=== PATIENT | female | born 1950 | race Two or more races ===

== ENCOUNTER 2019-01-27 22:00 | Emergency (ER) | payer OTHER ==
[~2019-01-27] VITALS: Ht 165.1 cm; Wt 59.0 kg
[2019-01-27 22:45] LABS: BASOPHILS % (AUTO) 0.2 % (0.0-2.0); EOSINOPHILS % (AUTO) 0.2 % (0.0-7.0); HEMATOCRIT 33.6 % (31.2-41.9); LYMPHOCYTES # (AUTO) 0.5 K/uL (20.0-40.0); LYMPHOCYTES % (AUTO) 3.3 % (20.5-51.5); MEAN CORPUSCULAR HGB CONC 33 g/dL (32.3-35.6); MEAN CORPUSCULAR VOLUME 91.9 fL (75.5-95.3); MONOCYTES # (AUTO) 1.1 K/uL (2.0-10.0); MONOCYTES % (AUTO) 7.1 % (0.0-11.0); NEUTROPHILS # (AUTO) 13.6 K/uL (1.8-8.9); NEUTROPHILS % (AUTO) 89.2 % (38.5-71.5); PLATELET COUNT (AUTO) 459 K/uL (179-408); RED BLOOD CELL COUNT(AUTO) 3.66 MIL/uL (3.63-4.92); WHITE BLOOD COUNT (AUTO) 15.2 K/uL (3.8-11.8)
[2019-01-27 22:56] LABS: BILIRUBIN,DIRECT 0.4 mg/dL (0.0-0.2); BILIRUBIN,TOTAL 0.9 mg/dL (0.2-1.0); CREATININE 0.7 mg/dL (0.6-1.3); POTASSIUM 4.5 mmol/L (3.5-5.1); TOTAL PROTEIN, SERUM 6.7 g/dL (6.4-8.2)
[2019-01-27] MEDS ORDERED: MORPHINE SULFATE 2 MG/1 ML DISP.SYRIN IV ONE (23:00)
--- NOTE | 2019-01-27 23:00 | NUR ---
CRITICAL VALUE 2.5 LACTIC ACID READ BY BREANNE (LAB) ERMD AWARE
--- NOTE | 2019-01-27 23:21 | NUR ---
PT RECEIVED NORCO TERRAZZO FINISHER AND DENIES PAIN AT THIS TIME FROM R HIP SWELLING PT WOULD LIKE TO WAIT UNTIL PAIN COMES BACK AGAIN FOR MORPHINE PT REQUESTING IV HYDRATION, STATES SHE FEELS DRY AND WAS NOT ABLE TO DRINK MUCH SHE USED TO ERMD AWARE
[2019-01-27] MEDS ORDERED: IV NS 1000 ML 1,000 ML IV ONE (23:30)
--- NOTE | 2019-01-27 23:54 | NUR ---
CHUCK ([facility] ATTENDANT) ON THE PHONE FOR CLINICALS STATES ASSIGNED WILL CALL US BACK TO TALK WITH DR ALVAREZ
[2019-01-28] MEDS ORDERED: MORPHINE SULFATE 2 MG/1 ML DISP.SYRIN ONE (01:21)
--- NOTE | 2019-01-28 01:40 | NUR ---
HAND OFF AND SBAR GIVEN TO WOLFGANG GILBERT ([phone]) PT WILL BE TRANSFERED TO [facility] RECEIVING MD: Katie TERRY DX: ACUTE R HIP FRACTURE RM [id number] TRANSFER FORM SIGNED
--- NOTE | 2019-01-28 01:45 | NUR ---
monitored accordingly bp 154/89 hr 90 spo2 99 rr 18 pain tolerable afte iv pain meds
--- NOTE | 2019-01-28 01:48 | NUR ---
able to tolerate ivf insertion by burn nurse to r dorsal hand g22
--- NOTE | 2019-01-28 02:28 | NUR ---
HAND OFF AND SBAR GIVEN TO EMS PT PICKED UP AND TRANSFERRED TO [facility] Patient Tranfers to outside Facility Physician: Katie TERRY Location:[address]
== END 2019-01-28 02:30 | disposition short-term general hospital (02) ==
LOC: ER 22:03
DX: S72.001A Fracture of unspecified part of neck of right femur, initial encounter for closed fracture (principal); E87.1 Hypo-osmolality and hyponatremia; E87.2 Acidosis; C49.21 Malignant neoplasm of connective and soft tissue of right lower limb, including hip; X58.XXXA Exposure to other specified factors, initial encounter; Y93.89 Activity, other specified; Y92.89 Other specified places as the place of occurrence of the external cause
CPT/HCPCS: 36415 ×2; 73502; 80048; 80076; 83605 ×2; 85025; 85651; 85730; 87040; 93971; 96374; 99285; J2270; A4663; J7030